=== PATIENT | male | born 1935 | race Caucasian/White ===

== ENCOUNTER 2019-02-17 13:11 | Outpatient (CLI) | payer MEDICARE, OTHER, BC | END 2019-02-17 13:12 | disposition home or self-care (01) | LOC: CONVCARE 13:12 ==

== ENCOUNTER 2019-03-29 08:13 | Emergency (ER) | payer MEDICARE, OTHER ==
[2019-03-29 08:35] VITALS: PULSE 62; RESP 18; TEMP 97.8
[2019-03-29 08:47] VITALS: BP 131/75; O2SAT 97
== END 2019-03-29 09:05 | disposition home or self-care (01) | DRG 395 ==
LOC: ED 08:13
DX: K46.9 Unspecified abdominal hernia without obstruction or gangrene (principal)
CPT/HCPCS: 99282